=== PATIENT | male | born 1945 | race Caucasian/White ===

== ENCOUNTER → 2017-06-23 | Outpatient (CLI) | payer MEDICARE, OTHER | LOC: COL.VAS 10:55 | DX: M79.661 Pain in right lower leg (principal); Z96.651 Presence of right artificial knee joint ==

== ENCOUNTER → 2021-03-25 | Outpatient (CLI) | payer MEDICARE, OTHER ==
[~2021-03-25] MED LIST: ASPIRIN 81M81 MG/TA2 PO; LIPITOR 40MG TA40 MG PO; PLAVIX 75MG TAB75 MG PO
== END ==
LOC: COL.RAD 12:55
DX: Z12.2 Encounter for screening for malignant neoplasm of respiratory organs (principal); F17.210 Nicotine dependence, cigarettes, uncomplicated; R91.1 Solitary pulmonary nodule

== ENCOUNTER 2023-09-06 08:02 | Day surgery (SDC) | payer MEDICARE ==
[~2023-09-06] VITALS: Ht 175.3 cm; Wt 66.6 kg
[~2023-09-06 08:02] MED LIST changes: +LR 1,000 ML IV SCH; +Ondansetron 4 MG/2 ML VIAL IV PRN
[2023-09-06] MEDS ORDERED: PROTONIX 40MG T40 MG PO (08:30)
[2023-09-06] MEDS ORDERED: Lidocaine PF 2% (20 MG/ML) 5 ML VIAL ONE (09:12)
[2023-09-06 09:45] VITALS: BP 123/64; PULSE 58; TEMP 96.4
[2023-09-06 10:00] VITALS: BP 166/65; PULSE 50
[2023-09-06 11:51] VITALS: BP 140/75; PULSE 58; TEMP 97.6
--- NOTE | 2023-09-06 12:01 | NUR ---
0999- PT RETURNS FROM ENDO PROCEDURE VIA CART AND RN ASSIST TO GI [facility] 2. PT AMBULATES FROM CART TO RECLINER WITH ASSIST. MONITORS ON AND ALARMS SET. CALL LIGHT WITHIN REACH. REPORT RECEIVED FROM JOSSELYN PUGH. PT ALERT AND ORIENTED. PT REQUESTS FOOD AND DRIN. PT DENIES ANY PAIN OR NAUSEA. 1000- PT TAKING FOOD AND DRINK WELL. NO COMPLICATIONS NOTED. 1030- DISCHARGE INSTRUCTIONS GIVEN TO PT. ALL QUESTIONS ANSWERED. 1045- PT TRANSFERRED OUT OF THE HOPITAL VIA WHEELCHAIR TO PRIVATE VEHICLE DRIVEN BY .
== END 2023-09-06 10:45 | disposition home or self-care (01) ==
LOC: SDCO 08:02
DX: K44.9 Diaphragmatic hernia without obstruction or gangrene (principal); K29.31 Chronic superficial gastritis with bleeding; F17.210 Nicotine dependence, cigarettes, uncomplicated; F17.290 Nicotine dependence, other tobacco product, uncomplicated; Z79.82 Long term (current) use of aspirin
CPT/HCPCS: J2704; J7120